=== PATIENT | male | born 1990 | race African-American/Black ===

== ENCOUNTER 2025-03-01 07:26 | Emergency (ER) | payer OTHER, SELFPAY ==
[2025-03-01] VITALS (12 sets, daily range): BP systolic 117–141; BP diastolic 61–97
[2025-03-01 08:52] LABS: % Basophils 0.4 % (0-2); % Eosinophils 0.2 % (0-6); % Immature Granulocytes 0.1 % (0-0.5); % Lymphocytes 13.1 % (20.5-51.1); % Monocytes 6.7 % (1.7-9.3); % Neutrophils 79.5 % (42.2-75.2); Absolute Lymphocytes 1.2 10^3/uL (1.2-3.4); Absolute Monocytes 0.6 10^3/uL (0.1-0.6); Absolute Neutrophils 7.1 10^3/uL (1.4-6.5); Hematocrit 43.1 % (39.0-52.0); Hemoglobin 13.2 g/dL (13.0-18.0); Mean Corp Hgb Conc. 30.6 g/dL (33.0-37.0); Mean Corpuscular Hgb 24.4 pg (27.0-31.0); Mean Corpuscular Volume 79.7 fL (80.0-94.0); Mean Platelet Volume 9.9 fL (7.4-10.4); Nucleated Red Blood Cells % 0 % (-); Platelet Count 294 10^3/uL (130-400); Red Blood Cell Count 5.41 10^6/uL (4.70-6.10); Red Cell Dist. Width 15.7 % (11.5-14.5)
[2025-03-01 09:04] LABS: ALT (SGPT) 29 U/L (0-50); AST (SGOT) 20 U/L (17-59); Albumin 4.9 g/dl (3.5-5.0); Alkaline Phosphatase 57 U/L (38-126); Blood Urea Nitrogen 19 mg/dl (9-20); Calcium 9.7 mg/dl (8.4-10.2); Carbon Dioxide 28 mmol/L (22-30); Chloride 109 mmol/L (98-107); Glucose 101 mg/dl (70-99); Potassium 4.7 mmol/L (3.5-5.1); Sodium 148 mmol/L (135-145); Total Bilirubin 0.5 mg/dl (0.2-1.3); Total Protein 9.3 g/dl (6.3-8.2); eGFR > 60.00
[2025-03-01 09:14] LABS: Troponin I < 0.012 ng/ml
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
[2025-03-01 10:18] LABS: D-Dimer 1.65 ug/mlFEU (0.00-0.50)
[2025-03-01] MEDS: TORADOL 15 MG IV (10:18)
[2025-03-01 10:28] LABS: Troponin I < 0.012 ng/ml
[2025-03-01 12:36] LABS: Troponin I < 0.012 ng/ml
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
[2025-03-01 17:27] LABS: Urine Albumin 2+ (Neg - Trace); Urine Bilirubin Negative (Negative); Urine Character Clear (Clear); Urine Color Yellow; Urine Glucose Negative (Negative); Urine Ketone 3+ (Negative); Urine Leukocyte Negative (Negative); Urine Nitrite Negative (Negative); Urine Occult Blood Negative (Negative); Urine Urobilinogen 1+ (Neg - 1+)
[2025-03-01 17:33] LABS: Amphetamines Negative (Negative); Barbiturates Positive (Negative); Benzodiazepines Negative (Negative); Buprenorphine Negative (Negative); Cocaine Negative (Negative); Marijuana Negative (Negative); Methadone Negative (Negative); Methamphetamines Negative (Negative); Opiates Negative (Negative); Phencyclidine Negative (Negative); Tricyclic Antidepressants Negative (Negative)
[2025-03-01 17:34] LABS: Urine Squamous Cell 0-2 /LPF (Few)
[2025-03-01 17:35] LABS: Urine Bacteria Few (Negative); Urine Mucus Few; Urine Red Blood Cell 0-2 /HPF (0-2); Urine White Cell 0-2 /HPF (0-5)
[2025-03-01 17:37] LABS: COVID-19 Antigen Negative (Negative)
[2025-03-01] MEDS: KEPPRA 1000 MG PO (20:35)
[2025-03-02 11:30] VITALS: BP 124/79
[2025-03-02] MEDS: KEPPRA 1000 MG PO (13:34)
== END 2025-03-02 15:01 ==
LOC: EMR 07:26
PROVIDERS: Emergency Medicine; Physician Assistant; CONSULT PHYSICIAN Psychiatry & Neurology Psychiatry; EMERGENCY PHYSICIAN Student in an Organized Health Care Education/Training Program
DX: R07.89 Other chest pain (principal); R45.851 Suicidal ideations; J45.909 Unspecified asthma, uncomplicated; G80.9 Cerebral palsy, unspecified; F25.9 Schizoaffective disorder, unspecified; F32.A Depression, unspecified; Z98.2 Presence of cerebrospinal fluid drainage device
CPT/HCPCS: 99285; 96374; 71046; 71275; 80053; 80306; 81003; 81015; 84484; 85025; 85379; 87811; 93005; Q9967

== ENCOUNTER 2025-04-02 00:13 | Emergency (ER) | payer OTHER, SELFPAY ==
[2025-04-02 00:14] VITALS: BP 157/89
[2025-04-02 01:00] VITALS: BP 128/77
[2025-04-02 01:11] LABS: Blood Urea Nitrogen 15 mg/dl (9-20); Calcium 8.9 mg/dl (8.4-10.2); Carbon Dioxide 20 mmol/L (22-30); Chloride 112 mmol/L (98-107); Glucose 94 mg/dl (70-99); Sodium 140 mmol/L (135-145); eGFR > 60.00
[2025-04-02 01:34] LABS: % Basophils 0.5 % (0-2); % Immature Granulocytes 0.3 % (0-0.5); % Lymphocytes 17.9 % (20.5-51.1); % Monocytes 8.3 % (1.7-9.3); Absolute Basophils 0.1 10^3/uL (0-0.2); Absolute Eosinophils 0.1 10^3/uL (0-0.7); Absolute Lymphocytes 1.8 10^3/uL (1.2-3.4); Absolute Monocytes 0.8 10^3/uL (0.1-0.6); Hematocrit 35.6 % (39.0-52.0); Hemoglobin 11.5 g/dL (13.0-18.0); Mean Corp Hgb Conc. 32.3 g/dL (33.0-37.0); Mean Corpuscular Volume 74.2 fL (80.0-94.0); Mean Platelet Volume 9.3 fL (7.4-10.4); Nucleated Red Blood Cells % 0 % (-); Platelet Count 263 10^3/uL (130-400); Red Cell Dist. Width 15.4 % (11.5-14.5); White Blood Cell Count 9.8 10^3/uL (4.8-10.8)
[2025-04-02 01:51] LABS: Lipase 73 U/L (23-300)
[2025-04-02 02:00] VITALS: BP 103/55
[2025-04-02 02:19] LABS: ALT (SGPT) 37 U/L (0-50); AST (SGOT) 29 U/L (17-59); Albumin 4.2 g/dl (3.5-5.0); Alkaline Phosphatase 56 U/L (38-126); Direct Bilirubin 0.5 mg/dl (0.0-0.4); Potassium 4.1 mmol/L (3.5-5.1); Total Bilirubin 0.6 mg/dl (0.2-1.3); Total Protein 7.9 g/dl (6.3-8.2)
--- NOTE | 2025-04-02 02:37 | ED.GENMED ---
History of Present Illness
General
Chief Complaint: Abdominal Pain
Source: patient and previous hospital records (Multiple previous ED visits at various different ED's)
Exam Limitations: none
Time Seen by Provider: 04/02/25 01:13
Nursing documentation reviewed up to this point in time: agreed with
History of Present Illness
History of Present Illness:
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
Multiple ED visits, on a near daily basis, for various complaints similar to tonight including near daily headache, intermittent chest pain, intermittent abdominal pain.
He has history of chronic depression, multiple psychiatric hospitalizations and according to prior records has been 'banned from multiple psychiatric hospitals in [place]'
Patient presents via EMS from a local convenience store initially with complaints of abdominal pain but upon my evaluation patient complains of headache. Admits to daily headache. When questioned as to most recent evaluation for his headache he is
unsure perhaps a few months ago.
[facility], patient has had extensive, repeated neuroimaging including unremarkable CT of the head as well as unremarkable shunt study performed just yesterday at [facility].
ED visit yesterday at [place] [facility], discharged and reportedly escorted from the building with note that patient is chronic malingerer.
He admits to chronic thoughts of suicide, has contemplated jumping in front of a car. Multiple, near daily ED visits with similar complaints. No prior suicide attempts.
Most recently hospitalized at [facility] 1 month ago.
Past History
Past History
ED Past Medical History: Asthma, HTN, Seizures, Psychiatric (Depression, chronic suicidal ideation without previous suicide attempts. Malingering.) and Other (Cerebral palsy, hydrocephalus with DENTAL LABORATORY ASSISTANT shunt, chronic daily headache. Malingering with
multiple-near daily ED visits at multiple different ED's. Multiple psychiatric hospitalizations.)
ED Past Surgical History: Appendectomy, Brain (DENTAL LABORATORY ASSISTANT shunt), Orthopedic and Other (DENTAL LABORATORY ASSISTANT shunt cerebral palsy. )
Social History
Tobacco: Non-smoker
Alcohol: None
Drug: None
Personal: Single
Living: with family
Employment: Not employed
Family History
Family History: Other (Noncontributory)
Phy Exam
Physical Exam
Physical Exam:
GENERAL: 34-year-old gentleman appears his stated age. Sleeps when undisturbed, easily arousable. Once awake, easily conversant and appears in no acute distress.
EYE: pupils equal and reactive. anicteric
NECK: Supple, nontender, no meningismus, no significant adenopathy.
ENT: posterior pharynx is clear, oral mucosa is moist. TM clear b/l, nares patent.
CARDIAC: Regular rate and rhythm. no murmur.
LUNGS: Clear breath sounds bilaterally, no acute respiratory distress, no wheezes/rales/rhonchi
ABDOMEN: Soft, nondistended, without focal tenderness, no r/g, no cvat. normoactive BS.
NEUROLOGICAL: Alert and oriented x3, mild paresis bilateral lower extremities.
SKIN: Warm and dry, normal color, skin intact. No rash.
MUSCULOSKELETAL: No C/C/E. peripheral pulses are full and equal b/l. No palpable tenderness.
PSYCH: Mildly blunted affect. Normal speech pattern. Admits to ongoing chronic thoughts of suicide. No hallucinations.
Course
Orders/Labs/Results
Orders:
Orders
04/02/25 00:32
Crisis Consult Urgent
Reason for Consult: Depression with SI
04/02/25 00:42
Basic Metabolic Panel Urgent
Lipase Urgent
04/02/25 01:20
[id number]-[id number]-[id number] Routine
Potassium Routine
04/02/25 01:21
Complete Blood Count/With Diff Urgent
Comment: REDRAW
04/02/25 01:37
Add On- LAB Urgent
Tests Added?: potassium
04/02/25 01:38
Add On- LAB Urgent
Tests Added?: LFT's
Abnormal Lab Results
04/02/25 04/02/25 04/02/25
00:42 01:20 01:21
Hgb 11.5 L g/dL
(13.0-18.0)
Hct 35.6 L %
(39.0-52.0)
MCV 74.2 L fL
(80.0-94.0)
MCH 24.0 L pg
(27.0-31.0)
MCHC 32.3 L g/dL
(33.0-37.0)
RDW 15.4 H %
(11.5-14.5)
Absolute Neuts (auto) 7.0 H 10^3/uL
(1.4-6.5)
Absolute Monos (auto) 0.8 H 10^3/uL
(0.1-0.6)
Lymphocytes % 17.9 L %
(20.5-51.1)
Chloride 112 H mmol/L
(98-107)
Carbon Dioxide 20 L mmol/L
(22-30)
Direct Bilirubin 0.5 H mg/dl
(0.0-0.4)
04/02/25 01:21
04/02/25 01:20
Vital Signs
Initial and Last Documented VS:
Initial Vital Signs
Temp Pulse Resp BP Pulse Ox
98.5 F 88 18 157/89 98
04/02/25 00:14 04/02/25 00:14 04/02/25 00:14 04/02/25 00:14 04/02/25 00:14
Last Documented Vital Signs
Temp Pulse Resp BP Pulse Ox
98.5 F 69 18 103/55 97
04/02/25 00:14 04/02/25 02:12 04/02/25 02:12 04/02/25 02:00 04/02/25 02:39
MDM/Problems Addressed
Differential Diagnosis Includes:
Patient presents with headache, initially had forgotten about his initial complaint of abdominal pain until mentioned by myself.
Admits to chronic daily headache and according to records has had extensive, near daily evaluations with multiple repeated neuroimaging including unremarkable CT of the head and shunt study performed just yesterday.
Abdomen is soft without appreciable tenderness.
Will check labs but at this point no indication for imaging.
He admits to chronic depression, chronic thoughts of suicide with multiple previous psychiatric hospitalizations and significant concern for malingering.
Will consult [facility].
Chronic conditions affecting care: Psychiatric illness
Acute Exacerbation and/or Progression of Chronic Illness: Psychiatric illness
*Pulse Oximetry
SaO2: 97
Oxygen Mode of Delivery: Room air
Patient hypoxic: no
*Critical Care Note
Total Time (30-74mins, 75-104mins- exclusive of procedures): Not Applicable
Update Note
Update Note:
Patient continues to sleep in undisturbed.
I have discussed with patient my concern for multiple, near daily ED visits with multiple extensive CAT scans of his head, chest, abdomen and pelvis all of which have been unremarkable including unremarkable DENTAL LABORATORY ASSISTANT shunt study performed just yesterday.
Therefore no indication for repeat imaging.
Overall appears comfortable.
Labs are unremarkable and abdomen is soft without appreciable tenderness.
Patient has been evaluated by [facility].
He is scheduled to start an outpatient program on Friday, in [place].
At this point no indication for acute psychiatric hospitalization.
Will discharge to home in the a.m.
As patient has history of cerebral palsy, utilizes bilateral wrist canes he will need transportation such as [employer] to the local bus station.
Upon review of multiple previous ED visits, concern for possible homelessness but patient assures me that he resides with his mother in [place].
ED Attending Note
-
Portions of this chart may have been created with voice recognition software.� Occasional wrong word or��sound alike� substitutions may have occurred due to the inherent limitations of voice recognition software.
Discharge Plan
Departure
Patient Disposition: Home (Routine Discharge)
Date of Disposition: 04/02/25
Time of Disposition: 02:37
Patient with high blood pressure during this ER visit?: No
Condition: Good
Discharge Problem:
Chronic daily headache, chronic stable depression, Malingering
Instructions: Depression in adults, Exercise and other activities to help with depression, Keeping track of your headaches
Prescriptions:
No Action
mirtazapine 30 mg Tablet
30 mg PO HS
phenobarbital 64.8 mg Tablet
64.8 mg PO BID
aripiprazole [Abilify] 10 mg Tablet
10 mg PO HS
carbamazepine 300 mg capsule, ER multiphase 12 hr
300 mg PO BID
levetiracetam [Keppra] 1,000 mg Tablet
1,000 mg PO BID
topiramate 25 mg Tablet
25 mg PO BID
ferrous sulfate 325 mg (65 mg iron) Tablet
325 mg PO DAILY
buspirone 10 mg Tablet
10 mg PO BID
pyridoxine (vitamin B6) 50 mg Tablet
50 mg PO DAILY
folic acid 1 mg Tablet
0.5 mg PO DAILY
mirtazapine 15 mg Tablet
15 mg PO HS
albuterol sulfate 90 mcg/actuation Hfa Aerosol Inhaler
2 puff INHALATION Q6H PRN (Reason: wheezing)
thiamine HCl (vitamin B1) 50 mg Tablet
50 mg PO DAILY
Referrals:
UNKNOWN - PT DOES,NOT KNOW [Family Provider]
Activity Restrictions/Additional Instructions:
Follow-up with your outpatient psychiatric program that starts on Friday.
Follow-up with your neurologist for further evaluation of your chronic daily headaches.
Interventions
Interventions:
*Risk Screen - Suicide Last Done: 04/02/25 00:14
*General Assessment Last Done: 04/02/25 00:14
*Neglect/Abuse Screening Last Done: 04/02/25 00:14
*ED- Fall Risk Assessment Last Done: 04/02/25 00:14
*ED COVID-19 Vaccine History Last Done: 04/02/25 00:14
CK-Xrjsyv-Wmwugbllln Assessment Last Done: 04/02/25 00:53
ED-Psychological Assessment Last Done: 04/02/25 00:53
Discharge Date and Time
Print Language: AMERICAN
[2025-04-02 04:00] VITALS: BP 113/73
[2025-04-02 06:00] VITALS: BP 142/87
== END 2025-04-02 06:56 | disposition home or self-care (01) ==
LOC: EMR 00:13
PROVIDERS: EMERGENCY PHYSICIAN Emergency Medicine
DX: R51.9 Headache, unspecified (principal); F32.A Depression, unspecified; Z76.5 Malingerer [conscious simulation]
CPT/HCPCS: 99283; 80048; 80076; 83690; 84132; 85025

== ENCOUNTER 2025-04-02 08:21 | Emergency (ER) | payer OTHER, SELFPAY ==
[2025-04-02 08:22] VITALS: BMI 32.2
[2025-04-02 08:25] VITALS: BP 169/85
[2025-04-02 09:00] VITALS: BP 169/85
--- NOTE | 2025-04-02 12:53 | EDRN ---
Pt is now a 201 per crisis and they state that the patient needs to be PLACED BACK IN THE ED FOR CRISIS TO PLACE HIM
--- NOTE | 2025-04-02 13:43 | ED.GENMED ---
History of Present Illness
General
Chief Complaint: Crisis Evaluation
Source: patient
Exam Limitations: none
Time Seen by Provider: 04/02/25 13:35
Nursing documentation reviewed up to this point in time: agreed with
History of Present Illness
History of Present Illness:
TIME OF INITIAL EVALUATION
- 1:30PM
REVIEW OF OLD RECORDS
- ED discharge summary from earlier this morning, 04/02/2025 after evaluation by ER physician as well as crisis team plan for discharge home with outpatient mental health program on Friday. Labs including CBC, CMP unremarkable
CHIEF COMPLAINT(S)
Mental health crisis with suicidal ideation.
HISTORY OF PRESENT ILLNESS
The patient is a 34-year-old male with a history of epilepsy, cerebral palsy presenting with a mental health crisis, characterized by suicidal ideation and a plan. He states that he was discharge from the hospital earlier today and his depressive
thoughts have worsened. He called police and reported that he was planning to jump in front of moving cars. He is seeking inpatient psychiatric treatment. Patient denies any HI. No auditory/visual hallucinations.
He reports feeling misunderstood and has experienced worsening mental health symptoms for years. Today, he expressed intensified suicidal thoughts, prompting intervention by authorities and subsequent transport to the current facility. The patient
did not receive his morning dose of seizure medication, which is a regular treatment for him.
The patient has a history of previous suicide attempt through intentional medication overdose, most recently a few months ago.
Patient denies any recreational drug use. He lives in [place] although came up to [facility] a few days ago for mental health treatment.
ADDITIONAL HISTORY OBTAINED FROM SOURCES OTHER THAN THE PATIENT
According to the patient, police officers were concerned about his safety, which contributed to his current visit for inpatient psychiatric evaluation.
CHRONIC MEDICAL CONDITIONS SIGNIFICANTLY AFFECTING CARE
Chronic conditions affecting care: Epilepsy, history of depression
REVIEW OF SYSTEMS
- Psychiatric: Suicidal ideation, depressive symptoms, previous suicidal attempt.
- Neurological: History of seizures, currently not taking seizure medication.
- Gastrointestinal: No abdominal pain reported.
- Cardiovascular: No chest pain reported.
- Genitourinary: Urination normal, denies concerns.
PHYSICAL EXAM
- Vitals: Hypertensive, otherwise vital signs stable afebrile
- General: Well appearing in no distress
- HEENT: Moist oral mucosa
- Cardiovascular: No murmurs, normal heart rate, regular rhythm, No chest wall tenderness
- Pulmonary: No respiratory distress, breath sounds are clear and equal
- Abdomen: Soft with no peritoneal signs, no tenderness
- Neurologic: Alert and oriented x 3, mild paresis in bilateral lower extremities
- Psychiatric: Mildly flat affect. Normal speech pattern. Suicidal ideation and depressive thoughts. Not responding to any internal stimuli my evaluation
PLAN
Evaluate and stabilize patients mental health crisis with focus on safety and suicide prevention. Consult with crisis team for inpatient psychiatric admission. Review and manage seizure medication to ensure compliance and prevent further episodes.
Monitor mental health status and support with appropriate psychiatric care. Ensure patients comfort in current setting, offer assistance, and communicate openly regarding ongoing care.
DIFFERENTIAL DIAGNOSIS
The Differential Diagnosis includes, in no particular order and is not limited to:
- Major depressive disorder with suicidal ideation
- Bipolar disorder
- Adjustment disorder with depression
- Anxiety disorder
- Psychotic disorder
- Substance use disorder (though denied by patient)
- Epileptic disorder affecting mood and cognition
- Medication non-compliance
- Borderline personality disorder
- Post-traumatic stress disorder (PTSD)
UPDATE
- Patient continues to express acute suicidal ideations. I have concerns about discharge home as he may be a threat to himself. I feel he would benefit from inpatient psychiatric care. Patient will plan to go voluntarily under 201 for further
mental health treatment. Disposition pending bed search by crisis.
- 3:15 PM: Given patient's associated chronic medical conditions -multiple facilities have refused patient. At this point�psychiatry was consulted for input on disposition. Psychiatry did evaluate patient at bedside, Dr. Monroy who feels that
given patient's repetitive voicing of suicidal ideations he ultimately should be placed inpatient for psychiatric care. However�no clear evidence/grounds for 302 petition at this time. At this point�will continue to search for inpatient bed as
patient is agreeable. However�if patient decides to leave�Per psychiatry he should sign out AMA.
- 5:45 PM: I was called to patient's room as he was stating that he was going to 'hang himself with his shoestrings' in the emergency department room. Patient was safely moved to one of our crisis rooms and has been placed on a one-to-one pending
bed search.
Past History
Past History
ED Past Medical History: Asthma, HTN, Seizures, Psychiatric (Depression, chronic suicidal ideation without previous suicide attempts. Malingering.) and Other (Cerebral palsy, hydrocephalus with SPORTS MARKETING SPECIALIST shunt, chronic daily headache. Malingering with
multiple-near daily ED visits at multiple different ED's. Multiple psychiatric hospitalizations.)
ED Past Surgical History: Appendectomy, Brain (SPORTS MARKETING SPECIALIST shunt), Orthopedic and Other (SPORTS MARKETING SPECIALIST shunt cerebral palsy. )
Social History
Tobacco: Non-smoker
Alcohol: None
Drug: None
Personal: Single
Living: with family
Employment: Not employed
Family History
Family History: Other (Noncontributory)
Review of Systems
Review of Systems
Allergies reviewed?: Yes
All Other Systems: ROS reviewed and negative except as documented in HPI and ROS
Phy Exam
Physical Exam
Physical Exam:
See HPI
Course
Orders/Labs/Results
Orders:
Orders
04/02/25 08:30
Crisis Consult Urgent
Reason for Consult: SI
04/02/25 14:55
Levetiracetam [Keppra] 1,000 mg PO NOW STA
Phenobarbital [Luminal] 64.8 mg PO NOW STA
04/02/25 15:01
Carbamazepine [Tegretol] 300 mg PO NOW STA
04/02/25 15:23
PSYCHIATRY CONSULT Urgent
Consulting Provider: Rd Monroy
Was physician already notified: Yes
04/02/25 17:43
1:1 Observation - Suicide/ Violent Behavior As Directed
04/02/25 20:00
Carbamazepine [Tegretol] 300 mg PO BID
Levetiracetam [Keppra] 1,000 mg PO BID
04/03/25 08:00
Phenobarbital [Luminal] 64.8 mg PO DAILY
Vital Signs
Initial and Last Documented VS:
Initial Vital Signs
Temp Pulse Resp BP Pulse Ox
98.4 F 101 18 169/85 97
04/02/25 08:25 04/02/25 08:25 04/02/25 08:25 04/02/25 08:25 04/02/25 08:25
Last Documented Vital Signs
Temp Pulse Resp BP Pulse Ox
97.2 F 101 22 141/79 95
04/02/25 15:59 04/02/25 09:00 04/02/25 15:59 04/02/25 15:59 04/02/25 15:59
*Pulse Oximetry
SaO2: 97
Oxygen Mode of Delivery: Room air
Patient hypoxic: no
*EKG
Interpreted by ED Provider?: NA
*Turbine Assembler Interpretation
Rate: Turbine Assembler- N/A
*Critical Care Note
Total Time (30-74mins, 75-104mins- exclusive of procedures): Not Applicable
Patient Management
Discussion with other providers: [employer] (Case discussed with psychiatry)
ED Attending Note
-
Portions of this chart may have been created with voice recognition software.� Occasional wrong word or��sound alike� substitutions may have occurred due to the inherent limitations of voice recognition software.
Discharge Plan
Departure
Patient Disposition: Psych Facility
Date of Disposition: 04/02/25
Time of Disposition: 14:54
Discharge Problem:
Suicidal ideation
Prescriptions:
No Action
mirtazapine 30 mg Tablet
30 mg PO HS
phenobarbital 64.8 mg Tablet
64.8 mg PO BID
aripiprazole [Abilify] 10 mg Tablet
10 mg PO HS
carbamazepine 300 mg capsule, ER multiphase 12 hr
300 mg PO BID
levetiracetam [Keppra] 1,000 mg Tablet
1,000 mg PO BID
topiramate 25 mg Tablet
25 mg PO BID
ferrous sulfate 325 mg (65 mg iron) Tablet
325 mg PO DAILY
buspirone 10 mg Tablet
10 mg PO BID
pyridoxine (vitamin B6) 50 mg Tablet
50 mg PO DAILY
folic acid 1 mg Tablet
0.5 mg PO DAILY
mirtazapine 15 mg Tablet
15 mg PO HS
albuterol sulfate 90 mcg/actuation Hfa Aerosol Inhaler
2 puff INHALATION Q6H PRN (Reason: wheezing)
thiamine HCl (vitamin B1) 50 mg Tablet
50 mg PO DAILY
Referrals:
UNKNOWN - PT DOES,NOT KNOW [Family Provider]
Interventions
Interventions:
*Risk Screen - Suicide Last Done: 04/02/25 08:25
*General Assessment Last Done: 04/02/25 08:25
*Neglect/Abuse Screening Last Done: 04/02/25 08:25
*ED- Fall Risk Assessment Last Done: 04/02/25 13:13
*ED COVID-19 Vaccine History Last Done: 04/02/25 13:13
ED-Psychological Assessment Last Done: 04/02/25 13:13
Discharge Date and Time
Print Language: TURKISH
[2025-04-02] MEDS: TEGRETOL 300 MG PO ×2 (15:48→20:07)
[2025-04-02] MEDS: LUMINAL 64.8 MG PO (15:48)
[2025-04-02] MEDS: KEPPRA 1000 MG PO ×2 (15:48→20:06)
--- NOTE | 2025-04-02 15:49 | CS.PSYCHR ---
Consult Summary - Psychiatry
-
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 Patient reportedly presented to [facility] ER 2 days ago and was discharged. Pt states he was at ER yesterday/last
night for abdominal pain, states he c/o SI and was 'ignored.' Pt seen sitting up in bed, alert, oriented, calm, cooperative. Pt reports feeling very depressed, preoccupied with the of his father from a stroke 7 years ago, as well as his aunt
in 2022. Pt states he does not feel safe, states he wants a '1 to 1' due to urge for self-harm. Per ED notes, pt admits to chronic thoughts of suicide, has contemplated jumping in front of a car; pt has frequent ED visits with similar complaints.
Psych Hx: dx Schizoaffective d/o per available history. Pt reports severe depression and past suicidal behavior- states he put a cord around his neck
Pt reports past seizure associated with antidepressant med- Abilify
Hx of multiple inpatient stays at [facility], [facility]; most recently inpatient at [facility] 1 month ago
SH: lives with mother, sister, brother in [place]. 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
MSE: alert, oriented, calm, cooperative, states he is preoccupied with losses. Affect is neutral/constricted, in no acute distress. No signs of psychosis. Pt reports suicidal ideation, thoughts of hanging himself. Insight appears limited
Imp: Major Depressive d/o, recurrent; Schizoaffective d/o by history. Pt reporting suicidal ideation
Rec: Continue assessment/observation. Discussed with Crisis staff, who are attempting to find voluntary psychiatric placement (unsuccessful thus far). Pt does not present grounds for 302 at this point.
Will hold off antidepressant for now; consider re-trial of Sertraline. Will follow
[2025-04-02 15:59] VITALS: BP 141/79
[2025-04-02 20:16] VITALS: BP 130/61
[2025-04-03 00:27] VITALS: BP 117/58
[2025-04-03] MEDS: TEGRETOL 300 MG PO ×2 (08:31→20:09)
[2025-04-03] MEDS: KEPPRA 1000 MG PO ×2 (08:32→20:09)
[2025-04-03] MEDS: LUMINAL 64.8 MG PO (08:32)
[2025-04-03 12:07] VITALS: BP 144/85
--- NOTE | 2025-04-03 12:38 | W.PN.UPDATE ---
Update Note
Progress Note Update
patient seen chart reviewed. mr art is a 34 yeaer old male with hx cp, sz (he has a vp lab shunt) asthma and chronic headache. he took the bus from [facility] yesterday and wound up at [facility] complaining of chest pain. he was medically cleared. he
verbalized suicidal ideation without plan or intent and a voluntary hospital bed was sought. the only psych med he took recently was buspar 10 mg daily which he is not taking now. he takes keppra phenobarb and tegretol for sz. he says he is
allergic to abilify which caused seizures. a hospital bed was sought for him but he has been denied admit to several local hospitals and to date none have been found. when i saw him today he told me 'i told your coworker i want a different room and
a different one to one and i am still here'. he feels no one takes him at this word here and threatened to 'paint the sadler red' with his blood if he were not accomodated. i told him this was not a hotel and we do not have a different room for him
and that the person assigned to him as a one to one was right outside his door. i offered him medication ativan or xanax for anxiety but he declined. info relayed to dr gamboa who is currently the ER doctor assigned to him. the patient does not
appear to be in any physical discomfort currently. he was not very cooperative with further questioning.
past psych hx patient has had several hospitalizations in facilities in [facility] and [facility]. he is banned from several of them and presently none of the local facilities are accepting him. he was given a dx of schizoaffective d.o but dr ohara notes
he saw nothing psychotic. nor did i note psychosis today. he is said to have some hx of self harm and reportedly put a rope around his neck in the past. phenobarb in uds indicative of sz meds. labs look ok mild anemia g=ghgb 11.5 w micro indices
has had shunt review recently looks ok . he has also had several cat brain in area facilities with no acute changes
medical hx sz d.o cerebral palsy has vp lab shunt asthma chronic nunn does not appear to be in physical distress now
fh non contributory
substance abuse denied
social resides with family in [facility]. fa about seven years ago aunt 2022 reports he is grieving their deaths
mse alert ox3 does not appear in physical distress speech a little loud thought process perseverative on the theme of wanting a different room and would not accept that this is not a hotel where you can choose your room. mood is irrated affect
c/w mood says he will paint the wall red (with his blood) if he does not get a new room. his suicidal threats do not seem to be born of depression but rather of manipulation. intelligence average insight judgment lacking
dx unclear what we are dealing with here depression plus manipulation ?
plan let patient know we cannot change his room. we will try to find a hospital that will accept him but that may not be possible. [place] will not be possible until at least tomorrow. have ordered ativan prn agitation. if he decides he is
no longer self injurious he can leave the er he is a voluntary patient and i am not going to commit him for being threatenting if we do not change his room.
[2025-04-03] MEDS: ATIVAN 1 MG PO (13:36)
[2025-04-03 20:08] VITALS: BP 121/73
[2025-04-04] MEDS: TYLENOL 650 MG PO (06:15)
[2025-04-04 06:23] VITALS: BP 128/87
[2025-04-04] MEDS: LUMINAL 64.8 MG PO (08:01)
[2025-04-04] MEDS: KEPPRA 1000 MG PO (08:01)
[2025-04-04] MEDS: TEGRETOL 300 MG PO (08:02)
--- NOTE | 2025-04-04 15:45 | W.PN.UPDATE ---
Update Note
Progress Note Update
Pt seen with Crisis staff. Pt complaining Crisis is not doing enough to place him, stating it is 'ridiculous' that he has been here since 'Friday' (actually overnight Friday into Sat morning). Pt not answering when asked about active suicidal
ideation today. He states he is thinking about leaving and going to [facility], states he has a job interview with [employer] near there tomorrow. Pt circumstantial in speech, stating he is getting frustrated. No agitation at
present, no signs of psychosis. Pt presents in manipulative manner. He has been declined by multiple psychiatric facilities, including [facility]- which he states he contacted. Pt has a reported hx of disruptive and aggressive behavior at facilities,
which he discounts. He states he gets angry when he feels disrespected. Insight is poor.
Imp: Unspecified Depressive d/o; Hx of Schizoaffective d/o, likely personality disorder.
Rec: Continue voluntary psych placement effort; do not see any grounds for a 302/ do not recommend filing a 302 if pt wants to sign out/leave AMA as above
[2025-04-04 16:07] VITALS: BP 130/72
== END 2025-04-04 16:53 ==
LOC: EMR 08:21
PROVIDERS: CONSULT PHYSICIAN Psychiatry & Neurology Psychiatry; EMERGENCY PHYSICIAN Emergency Medicine
DX: R45.851 Suicidal ideations (principal); F32.A Depression, unspecified; G40.909 Epilepsy, unspecified, not intractable, without status epilepticus; Z91.51 Personal history of suicidal behavior
CPT/HCPCS: 99285

== ENCOUNTER 2025-04-04 18:37 | Emergency (ER) | payer OTHER, SELFPAY ==
[2025-04-04 18:49] VITALS: BP 139/79
[2025-04-04 19:09] LABS: % Basophils 0.4 % (0-2); % Eosinophils 0.6 % (0-6); % Immature Granulocytes 0.5 % (0-0.5); % Lymphocytes 15.3 % (20.5-51.1); % Monocytes 7.6 % (1.7-9.3); % Neutrophils 75.6 % (42.2-75.2); Absolute Eosinophils 0.1 10^3/uL (0-0.7); Absolute Immature Granulocytes 0.1 10^3/uL (0-0.05); Absolute Lymphocytes 1.6 10^3/uL (1.2-3.4); Absolute Monocytes 0.8 10^3/uL (0.1-0.6); Absolute Neutrophils 7.9 10^3/uL (1.4-6.5); Hematocrit 39.3 % (39.0-52.0); Hemoglobin 12.7 g/dL (13.0-18.0); Mean Corp Hgb Conc. 32.3 g/dL (33.0-37.0); Mean Corpuscular Hgb 24.1 pg (27.0-31.0); Mean Corpuscular Volume 74.4 fL (80.0-94.0); Mean Platelet Volume 9.1 fL (7.4-10.4); Nucleated Red Blood Cells % 0 % (-); Platelet Count 285 10^3/uL (130-400); Red Blood Cell Count 5.28 10^6/uL (4.70-6.10); Red Cell Dist. Width 15.2 % (11.5-14.5); White Blood Cell Count 10.4 10^3/uL (4.8-10.8)
[2025-04-04 19:41] LABS: ALT (SGPT) 33 U/L (0-50); AST (SGOT) 22 U/L (17-59); Albumin 4.6 g/dl (3.5-5.0); Alkaline Phosphatase 70 U/L (38-126); Blood Urea Nitrogen 11 mg/dl (9-20); Calcium 9.6 mg/dl (8.4-10.2); Carbon Dioxide 24 mmol/L (22-30); Chloride 110 mmol/L (98-107); Glucose 113 mg/dl (70-99); Sodium 142 mmol/L (135-145); Total Bilirubin 0.3 mg/dl (0.2-1.3); Total Protein 8.7 g/dl (6.3-8.2); eGFR > 60.00
[2025-04-04 19:51] LABS: Troponin I < 0.012 ng/ml
[2025-04-04 20:57] VITALS: BP 138/78
== END 2025-04-04 20:57 | disposition left against medical advice (07) ==
LOC: EMR 18:37
PROVIDERS: Emergency Medicine; EMERGENCY PHYSICIAN Emergency Medicine
DX: R07.89 Other chest pain (principal); Z53.21 Procedure and treatment not carried out due to patient leaving prior to being seen by health care provider
CPT/HCPCS: 80053; 84484; 85025; 93005

== ENCOUNTER 2025-05-17 23:19 | Emergency (ER) | payer OTHER, SELFPAY ==
[2025-05-17 23:39] VITALS: BP 142/79
--- NOTE | 2025-05-18 00:21 | ED.GENMED ---
History of Present Illness
General
Chief Complaint: Crisis Evaluation
Source: patient
Exam Limitations: none
Time Seen by Provider: 05/18/25 00:08
History of Present Illness
History of Present Illness:
See MDM
Past History
Past History
ED Past Medical History: Asthma, HTN, Seizures, Psychiatric (Depression, chronic suicidal ideation without previous suicide attempts. Malingering.) and Other (Cerebral palsy, hydrocephalus with SURGICAL SERVICES MANAGER shunt, chronic daily headache. Malingering with
multiple-near daily ED visits at multiple different ED's. Multiple psychiatric hospitalizations.)
ED Past Surgical History: Appendectomy, Brain (SURGICAL SERVICES MANAGER shunt), Orthopedic and Other (SURGICAL SERVICES MANAGER shunt cerebral palsy. )
Social History
Tobacco: Non-smoker
Alcohol: None
Drug: None
Personal: Single
Living: with family
Employment: Not employed
Family History
Family History: Other (Noncontributory)
Phy Exam
Physical Exam
Physical Exam:
See MDM
Course
Orders/Labs/Results
Orders:
Orders
05/17/25 23:43
Crisis Consult Urgent
Reason for Consult: SI
05/17/25 23:51
1:1 Observation - Suicide/ Violent Behavior As Directed
05/18/25 00:18
Ibuprofen [Motrin] 600 mg PO NOW STA
Levetiracetam [Keppra] 1,000 mg PO NOW STA
Phenobarbital [Luminal] 64.8 mg PO NOW STA
05/18/25 00:19
Consult Notification Routine
Specialty to Notify: Psychiatry
Consult Psychiatry [PSYCHIATRY CONSULT] Routine
Consulting Provider: Margie Ascencio
Was physician already notified: No
Reason for consult: depression
Complete Blood Count/With Diff Urgent
Comprehensive Metabolic Panel Urgent
Vital Signs
Initial and Last Documented VS:
Initial Vital Signs
Temp Pulse Resp BP Pulse Ox
98.2 F 80 20 142/79 97
05/17/25 23:39 05/17/25 23:39 05/17/25 23:39 05/17/25 23:39 05/17/25 23:39
Last Documented Vital Signs
Temp Pulse Resp BP Pulse Ox
98.2 F 80 20 142/79 97
05/17/25 23:39 05/17/25 23:39 05/17/25 23:39 05/17/25 23:39 05/17/25 23:39
MDM/Problems Addressed
Differential Diagnosis Includes:
Note:
CHIEF COMPLAINT(S)
Psychological distress, previous fall with potential injury, and medication management issues.
HISTORY OF PRESENT ILLNESS
The patient is a 34-year-old male who presents following an episode earlier this day where he experienced a fall, leading to him being trapped between a toilet and a sink. Upon attempting to get up, he fell again. The patient felt disoriented,
prompting him to contact the local fire department for assistance, who then transported him to a hospital. There, an X-ray was performed on his SURGICAL SERVICES MANAGER shunt due to concern for injurious impact, which showed no abnormalities. No imaging was performed on
his ankle, though he reports discomfort in this area. Additionally, the patient reports experiencing significant psychological distress, including feelings of depression and suicidality. He has a history of suicidal ideation, notably attempting
self-harm after leaving the hospital. The patient recently lost his father in a traumatic event in 2017, which continues to affect his mental health. He sought help to manage these psychological issues and stabilize his medication regimen,
specifically mentioning challenges with his current prescriptions, which he says affect his balance.
After leaving the hospital, he went to a different hospital where he did receive an x-ray of the ankle which he states was normal
MEDICATIONS
Keppra and phenobarbital
REVIEW OF SYSTEMS
- Musculoskeletal: Reports of falling twice today with pain in the ankle.
- Psychological: Depression, suicidal ideation, unresolved grief related to father�s , balance issues associated with medication.
PHYSICAL EXAM
General: Alert, no acute distress.
Skin: Warm, dry.
Head: Normocephalic, atraumatic
Neck: Appears supple, trachea midline.
Eyes, Ears, Nose, Mouth, and Throat: Oral mucosa moist.
Cardiovascular: No signs of cyanosis
Respiratory: Respirations are non-labored.
Abdomen: Non-distended
Musculoskeletal: Mild swelling to the left ankle without significant tenderness
Neurological: No focal neurological deficit observed.
Psychiatric: Cooperative, appropriate mood and affect.
PROBLEM LIST
Acute Problems:
1. Psychological distress with suicidal ideation.
2. Recent falls with possible musculoskeletal injury.
3. Medication management affecting balance.
PLAN
1. Behavioral Health Intervention: Immediate psychiatric evaluation and intervention to address depression and suicidal ideation. Plan to have psychosocial support involved.
2. Medication Optimization: Review and adjust the patient�s current medication regimen, continuing Bupropion and Levetiracetam, addressing concerns regarding balance and coordination.
3. Pain and Injury Management: Provide analgesics for ankle pain; monitor for swelling and further evaluate if symptoms persist.
4. Follow-Up: Ensure ongoing access to mental health services and arrange follow-up care with a psychiatrist for long-term management.
DIFFERENTIAL DIAGNOSIS
The Differential Diagnosis includes, in no particular order and is not limited to:
1. Major Depressive Disorder
2. Adjustment Disorder with Depressed Mood
3. Suicidal Ideation
4. Anxiety Disorder
5. Grief Reaction
6. Fall with Musculoskeletal Injury
7. Medication-Induced Balance Disorder
8. Post-Traumatic Stress Disorder
9. Bipolar Disorder
10. Substance-Induced Mood Disorder
Disposition:
SUMMARY OF ENCOUNTER
The patient, a 34-year-old male, presented to the emergency department following multiple falls and psychological distress, including suicidal ideation. He experienced a fall earlier in the day that led to being trapped between a toilet and a sink.
The patient is dealing with depression, a suicide attempt history, and medication management issues impacting his balance, compounded by unresolved grief from his fathers traumatic . The patients current medications include phenobarbital and
Levetiracetam, with concerns about their effects on balance. During the visit, he was placed on a psychiatric hold for further evaluation and monitoring.
DISPOSITION
The decision was made to observe the patient overnight on a psychiatric hold for safety while awaiting psychiatric evaluation in the morning to determine whether an inpatient psychiatric stay is necessary.
PLAN
1. Observation overnight with the psychiatric team assessing the patients mental health status in the morning.
2. Prepare for a potential psychiatric evaluation to determine the need for inpatient psychiatric care.
3. Continuation of care for psychological support and monitoring of medication effects on balance.
MEDICAL DECISION MAKING
-Complexity of Data Reviewed: Chronic conditions affecting care include major depressive disorder, adjustment disorder with depressed mood, suicidal ideation, anxiety disorder, grief reaction, fall with musculoskeletal injury, medication-induced
balance disorder, post-traumatic stress disorder, bipolar disorder, and substance-induced mood disorder.
CRITICAL CARE TIME
I provided continuous monitoring due to a high probability of clinically significant, life-threatening deterioration, requiring the highest level of emergency preparedness for possible intervention.
DIAGNOSIS
1. Major Depressive Disorder (F32.9)
2. Suicidal Ideation (R45.851)
3. Fall with Musculoskeletal Injury (W19.xxxA)
4. 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
*Pulse Oximetry
SaO2: 97
Oxygen Mode of Delivery: Room air
Patient hypoxic: no
*Critical Care Note
Total Time (30-74mins, 75-104mins- exclusive of procedures): Not Applicable
ED Attending Note
-
Portions of this chart may have been created with voice recognition software.� Occasional wrong word or��sound alike� substitutions may have occurred due to the inherent limitations of voice recognition software.
Discharge Plan
Departure
Patient Disposition: Other
Date of Disposition: 05/18/25
Time of Disposition: 00:23
Discharge Problem:
Depression
Prescriptions:
No Action
mirtazapine 30 mg Tablet
30 mg PO HS
phenobarbital 64.8 mg Tablet
64.8 mg PO BID
aripiprazole [Abilify] 10 mg Tablet
10 mg PO HS
carbamazepine 300 mg capsule, ER multiphase 12 hr
300 mg PO BID
levetiracetam [Keppra] 1,000 mg Tablet
1,000 mg PO BID
topiramate 25 mg Tablet
25 mg PO BID
ferrous sulfate 325 mg (65 mg iron) Tablet
325 mg PO DAILY
buspirone 10 mg Tablet
10 mg PO BID
pyridoxine (vitamin B6) 50 mg Tablet
50 mg PO DAILY
folic acid 1 mg Tablet
0.5 mg PO DAILY
mirtazapine 15 mg Tablet
15 mg PO HS
albuterol sulfate 90 mcg/actuation Hfa Aerosol Inhaler
2 puff INHALATION Q6H PRN (Reason: wheezing)
thiamine HCl (vitamin B1) 50 mg Tablet
50 mg PO DAILY
Interventions
Interventions:
*Risk Screen - Suicide Last Done: 05/17/25 23:39
*General Assessment Last Done: 05/17/25 23:39
*Neglect/Abuse Screening Last Done: 05/17/25 23:39
*ED- Fall Risk Assessment Last Done: 05/17/25 23:39
Discharge Date and Time
Print Language: ROMANIAN
[2025-05-18 00:58] LABS: Hematocrit 39.4 % (39.0-52.0); Hemoglobin 12.2 g/dL (13.0-18.0); Mean Corp Hgb Conc. 31.0 g/dL (33.0-37.0); Mean Corpuscular Volume 75.8 fL (80.0-94.0); Nucleated Red Blood Cells % 0 % (-); Platelet Count 245 10^3/uL (130-400); Red Cell Dist. Width 15.9 % (11.5-14.5)
[2025-05-18] MEDS: MOTRIN 600 MG PO (01:00)
[2025-05-18] MEDS: LUMINAL 64.8 MG PO (01:00)
[2025-05-18] MEDS: KEPPRA 1000 MG PO (01:00)
[2025-05-18 01:04] VITALS: BP 141/89; BMI 31.8
[2025-05-18 01:08] LABS: ALT (SGPT) 38 U/L (0-50); AST (SGOT) 26 U/L (17-59); Albumin 4.4 g/dl (3.5-5.0); Alkaline Phosphatase 50 U/L (38-126); Blood Urea Nitrogen 10 mg/dl (9-20); Calcium 9.1 mg/dl (8.4-10.2); Carbon Dioxide 25 mmol/L (22-30); Chloride 107 mmol/L (98-107); Glucose 114 mg/dl (70-99); Potassium 4.6 mmol/L (3.5-5.1); Sodium 141 mmol/L (135-145); Total Protein 8.3 g/dl (6.3-8.2); eGFR > 60.00
[2025-05-18 09:12] VITALS: BP 127/79
--- NOTE | 2025-05-18 12:49 | W.PN.UPDATE ---
Update Note
Progress Note Update
psych consult canceled patient accepted at psych facility and will be leaving shortly
--- NOTE | 2025-05-18 14:05 | ED.CRISIS ---
ED Crisis Note
ED Crisis Note
Subjective:
No new issues
Assessment/Plan:
To be transferred inpatient psych at 1430 today
== END 2025-05-18 16:52 | disposition other institution (70) ==
LOC: EMR 23:19
PROVIDERS: EMERGENCY PHYSICIAN Student in an Organized Health Care Education/Training Program
DX: F32.9 Major depressive disorder, single episode, unspecified (principal); R51.9 Headache, unspecified; M25.472 Effusion, left ankle; M25.572 Pain in left ankle and joints of left foot; R41.0 Disorientation, unspecified; W19.XXXA Unspecified fall, initial encounter; R45.851 Suicidal ideations; I10 Essential (primary) hypertension; G80.8 Other cerebral palsy; J45.909 Unspecified asthma, uncomplicated; Z63.4 Disappearance and death of family member; Z98.2 Presence of cerebrospinal fluid drainage device; Z88.0 Allergy status to penicillin; Z88.7 Allergy status to serum and vaccine
CPT/HCPCS: 99285; 80053; 80306; 85025